=== PATIENT | male | born 1955 | race Caucasian/White ===

== ENCOUNTER → 2016-06-05 | Outpatient (CLI) | payer MEDICAID ==
--- NOTE | ~2016-06-05 | XA30 ---
[facility] A Service of [facility] RADIOLOGY TEXT RESULTS PATIENT: MALIA WRIGHT LOCATION: CIVR : 51 UNIT #: [id number] AGE: [address]: Rian Pratt MD SEX: M ORDER DR: [id number] [facility] [address] [place], [place] [address] [id number] O MR#: [id number] Acc #: [id number] NAME: MALIA WRIGHT : 1955 SEX: M STUDY DATE/TIME: 06/05/2016 9:39 UNIT: [facility] ROOM: STUDY DESCRIPTION: XA Arthrocentesis Major Joint Attending Physician: Rian Pratt M.D. Referring Physician: Rian Pratt M.D. Ordering Physician: Rian Pratt M.D. Primary Care Physician: Rene Bergeron M.D. MEDICAL IMAGING REPORT This report is preliminary unless electronic signature is present EXAM Left hip injection with fluoroscopic guidance, 06/05/2016. HISTORY Left hip pain rated 4/10. PROCEDURE Informed consent was obtained and a skin site selected and marked, sterilely prepped and draped and locally anesthetized. A 22-guage spinal needle was then advanced into the joint under fluoroscopic guidance. Contrast injection confirmed intraarticular needle tip position followed by injection of 2 mL of Marcaine and 40 mg of Depo-Medrol. Preprocedure pain level was graded 4/10 postprocedure pain level 0/10. IMPRESSION Successful left hip arthrocentesis and injection with Depo-Medrol and Marcaine with fluoroscopic guidance. Dictated by... Wilmer Peraza M.D. THIS IS AN ELECTRONICALLY VERIFIED REPORT Wilmer Peraza M.D. at 06/09/2016 3:57 PM TONY/adin TD: 06/08/2016 12:40 JOB #: [id number] MEDICAL IMAGING REPORT Page 1 of 1 COPY
== END | disposition home or self-care (01) ==
LOC: CIVR 08:32
PROC: 3E0U33Z Introduction of Anti-inflammatory into Joints, Percutaneous Approach (ICD-10-PCS; principal; 2016-06-05)
PROC: 3E0U3BZ Introduction of Anesthetic Agent into Joints, Percutaneous Approach (ICD-10-PCS; 2016-06-05)
DX: M16.12 Unilateral primary osteoarthritis, left hip (principal)
CPT/HCPCS: 77002; J1030; Q9966